=== PATIENT | male | born 1955 | race Caucasian/White ===

== ENCOUNTER 2018-08-17 18:02 | Inpatient (IN) ==
[2018-08-17] MEDS ORDERED: Tdap (Boostrix) Vaccine 0.5 ML SYRINGE IM ONE (18:10)
[2018-08-17] MEDS ORDERED: Ondansetron 4 MG/2 ML VIAL IVP ONE (18:11)
--- NOTE | 2018-08-17 18:12 | Emergency Department Note ---
Disposition Clinical Impression: Ventricular arrhythmia Syncope Qualifiers: Syncope type: unspecified Qualified Code(s): R55 - Syncope and collapse Scalp laceration Qualifiers: Encounter type: initial encounter Qualified Code(s): S01.01XA - Laceration without foreign body of scalp, initial encounter Disposition: Admitted As Inpatient Condition: Undetermined Time of Disposition: 19:36 Syncope HPI - General Chief Complaint: ED Syncope Stated Complaint: Fall Time Seen by Provider: 08/17/18 18:07 Source: patient, EMS Mode of arrival: EMS Limitations: no limitations Nursing Notes Reviewed: Yes Vital Signs Reviewed: Yes - History of Present Illness HPI Narrative: 63-year-old male with history of hypertension, cardiac arrhythmia of unknown origin, arrives to the emergency department after a syncopal episode. The patient fell and struck his head mid-conversation with friend. The patient was down for an unknown period of time. EMS was called at that time and arrived to see the patient. The patient had no recollection of the incident. No seizure- like activity was reported by friend. The patient was being transported from EMS and we will hold up to the monitor in the EMS vehicle, the patient underwent roughly 10 seconds of ventricular fibrillation. The patient became unresponsive during that period of time and does not recollect the incident. The patient denies any other complaints at this time. He was noting to have some nausea on waking up after this episode of ventricular fibrillation. The patient does have a small laceration to his left posterior occiput. Patient denies any chest pain, difficulty breathing, abdominal pain, melena, hematochezia, unilateral leg swelling, paresthesias at this time. He is alert and oriented. He is appropriate for evaluation. He denies any other complaints. - Related Data Home Medications Medication Instructions Recorded Confirmed Aspirin Enteric Coated [Aspirin EC] 81 mg PO DAILY 08/17/18 08/17/18 Clobetasol Propionate 0.05% 1 appl TP BID 08/17/18 08/17/18 [Temovate] Ibuprofen [Advil] 200 mg PO DAILY PRN 08/17/18 08/17/18 Multivitamin [One Daily Essential] 1 tab PO DAILY 08/17/18 08/17/18 Allergies Allergy/AdvReac Type Severity Reaction Status Date / Time No Known Drug Allergies Allergy See Verified 08/17/18 18:12 Comments All systems ED: reviewed and negative except as stated. Constitutional: Denies: fever, chills, weakness ENT ED: Denies: dysphagia Cardiovascular: Reports: syncope. Denies: chest pain Respiratory: Denies: dyspnea Gastrointestinal: Reports: nausea. Denies: abdominal pain, vomiting, diarrhea, hematemesis, melena Genitourinary: Denies: urgency, dysuria Musculoskeletal: Denies: back pain Integumentary: Denies: rash Neurological: Denies: headache, numbness, paresthesias, confusion Past Medical History - Past Medical History Attestation: Yes The following information was validated with the patient. Source: patient, old records reviewed Medical history: Reports: hypertension Surgical history: Reports: non-contributory - Social History Smoking Status: Never smoker Smokeless Tobacco Status: No Alcohol use: Reports: none Drug use: Reports: marijuana Physical Exam - General Limitations: no limitations General appearance: alert, in no apparent distress - Head Head exam: other (Small laceration to posterior occiput) - Eye Eye exam: Present: normal appearance, PERRL, EOMI - ENT ENT exam: normal exam, normal oropharynx, mucous membranes moist - Neck Neck exam: Present: normal inspection, full ROM, trachea midline - Chest Chest inspection: Present: normal inspection, symmetric chest wall rise - Respiratory Respiratory exam: Present: normal lung sounds bilaterally - Cardiovascular Cardiovascular exam: Present: regular rate, normal rhythm, normal heart sounds - Abdominal Exam Abdominal exam: Present: soft, Non-Tender. Absent: tenderness, distention, guarding, rebound, rigidity - Extremities Exam Extremities exam: Present: normal inspection, full ROM. Absent: tenderness, pedal edema - Neurological Exam Neurological exam: Present: alert, oriented X3, CN II-XII intact - Expanded Neurological Exam Patient oriented to: Present: person, place, time Speech: Present: fluid speech Cranial nerves: EOM function (II, III, IV, ): Normal, facial sensation (V): Normal, facial palsy (VII): Normal Motor strength - LUE: 5/5 Motor strength - RUE: 5/5 Motor strength - LLE: 5/5 Motor strength - RLE: 5/5 Sensory exam upper extremity: light touch: Normal Sensory exam lower extremity: light touch: Normal Coma Scale Eye Opening: Spontaneous Coma Scale Motor Response: Obeys Commands Coma Scale Verbal Response: Oriented Coma Scale Total: 15 - Skin Skin exam: Present: warm, dry, normal color, other (1.5 cm left posterior laceration. Small abrasion to left lateral elbow.) Course Vital Signs Temperature 97.8 F 08/17/18 18:03 Pulse Rate 67 08/17/18 18:03 Respiratory Rate 18 08/17/18 18:03 Blood Pressure 123/84 08/17/18 18:03 O2 Sat by Pulse Oximetry 99 08/17/18 18:03 Temperature 98.0 F 08/17/18 21:48 Pulse Rate 74 08/17/18 21:48 Respiratory Rate 16 08/17/18 21:48 Blood Pressure 129/86 08/17/18 21:48 O2 Sat by Pulse Oximetry 98 08/17/18 21:48 Oxygen Delivery Oxygen Delivery Room Air Procedures - Laceration Laceration 1 Site: scalp Side (If applicable): left Size (cm): 1.5 Description: linear Depth: simple, single layer Local Anesthetic: lidocaine 1%, with epi Amount of Anesthesia Used (mL): 2 Pre-repair: wound explored Skin layer closed with: vicryl Size: 4-0 Number of sutures/britney: 3 Technique: simple, interrupted Syncope - MDM Narrative Medical decision making narrative: Patient's workup in the emergency department given streets no acute process intracranial, cervical spine shows no acute fractures but does demonstrate findings concerning for multiple myeloma. Patient's lab work is otherwise unremarkable with exception of some mild hypokalemia. The patient will be admitted to the hospital given the V. fib that was witnessed by EMS and the patient's syncopal episode. Patient given strict no other acute process. Patient's wound was sutured in the trauma bay. The patient will be admitted to the hospitalist for further care and workup. The patient made aware and agrees to plan. No further questions or concerns noted at this time. Patient accepted by Dr. Kwok. - Lab Data Lab results reviewed: Yes I reviewed the patient's lab results. Result diagrams: 08/17/18 18:13 08/17/18 18:13 Lab Results 08/17/18 08/17/18 Range/Units 18:13 18:13 WBC 7.2 (4.3-11.1) K/mcL RBC 4.65 (4.19-5.50) M/mcL Hgb 14.3 (12.9-16.9) g/dL Hct 42.7 (37.5-50.1) % MCV 91.8 (83.0-100.0) fL MCH 30.8 (28.0-33.3) pg MCHC 33.5 (31.6-35.5) g/dL RDW 13.3 (11.5-14.5) % Plt Count 293 (140-400) K/mcL MPV 9.0 L (9.4-12.4) fL Immature Gran % 0.4 (0-4) % Seg Neutrophils % 75.4 % Lymphocytes % 18.1 % Monocytes % 4.9 % Eosinophils % 0.6 % Basophils % 0.6 % Neutrophils # 5.4 (1.6-8.9) K/mcL Lymphocytes # 1.3 (0.6-4.6) K/mcL Monocytes # 0.4 (0.0-1.3) K/mcL Eosinophils # 0.0 (0.0-0.6) K/mcL Basophils # 0.0 (0.0-0.2) K/mcL Sodium 139 (136-145) mEq/L Potassium 3.4 L (3.5-5.1) mEq/L Chloride 109 H (98-107) mEq/L Carbon Dioxide 21 L (23-29) mEq/L BUN 15 (8-23) mg/dL Creatinine 0.90 (0.70-1.30) mg/dL Est GFR ( Amer) > 60 (> 60) Est GFR (Non-Af Amer) > 60 (> 60) BUN/Creatinine Ratio 17 (6-26) Glucose 168 H (70-105) mg/dL Calculated Osmolality 293 (280-300) Calcium 9.1 (8.6-10.3) mg/dL Magnesium 2.0 (1.6-2.6) mg/dL Total Bilirubin 0.7 (0.3-1.0) mg/dL AST 16 (13-39) Units/L ALT 13 (7-52) Units/L Alkaline Phosphatase 62 (34-104) Units/L Troponin I < 0.03 (< 0.04) ng/mL Serum Total Protein 6.8 (6.4-8.9) g/dL Albumin 4.4 (3.5-5.7) g/dL Globulin 2.4 (2.4-3.5) g/dL Albumin/Globulin Ratio 1.8 (1.1-2.2) - Radiology Data Radiology results reviewed: Yes I reviewed the patient's radiology results. Head CT 08/17/18 18:07 IMPRESSION: No acute intracranial abnormality. Left parietal scalp hematoma. D/ / Annie Vicente MD / Annie Vicente MD Interpreting Provider: Annie Vicente MD Cervical Spine CT 08/17/18 18:08 IMPRESSION: No acute abnormality of the cervical spine. Small numerous lytic regions throughout the cervical spine raise the suspicion for multiple myeloma. D/ / 08/17/2018 18:39:14 Annie Vicente MD / aria Interpreting Provider: Annie Vicente MD - EKG Data EKG attestation: Yes I reviewed and interpreted this EKG. EKG results narrative: Heart rate 63 beats for minute. Normal sinus rhythm. No ST elevation or ST depression noted. Inverted T waves noted in V1. Attestation Statement - Attestation Attestation: I examined this patient and my medical decision-making was reviewed with the Resident Physician. I agree with the documented findings, disposition and treatment plan as described except to the extent set forth below. Findings consistent with fall. There is possible arrhythmic genic etiologies which caused his syncopal event and fall. The paramedics reported there was possible arrhythmia with syncope on the way to the hospital. There is a small laceration the head. CT scan of the head and cervical spine shows no acute findings. Ultimately laboratory analyses were without significant derangement. The patient will need to be admitted for possible EP study and cardiac consultation to rule out arrhythmic genic causes of syncope.
[2018-08-17 18:22] LABS: Basophils % 0.6 %; Eosinophils % 0.6 %; Hematocrit 42.7 % (37.5-50.1); Hemoglobin 14.3 g/dL (12.9-16.9); Immature Granulocytes % 0.4 % (0-4); Lymphocytes # 1.3 K/mcL (0.6-4.6); Lymphocytes % 18.1 %; Mean Corpuscular HGB Conc 33.5 g/dL (31.6-35.5); Mean Corpuscular Hemoglobin 30.8 pg (28.0-33.3); Mean Corpuscular Volume 91.8 fL (83.0-100.0); Monocytes # 0.4 K/mcL (0.0-1.3); Monocytes % 4.9 %; Neutrophils # 5.4 K/mcL (1.6-8.9); Platelet Count 293 K/mcL (140-400); Red Blood Count 4.65 M/mcL (4.19-5.50); Red Cell Distribution Width 13.3 % (11.5-14.5); Segmented Neutrophils % 75.4 %
[2018-08-17 18:44] LABS: Alanine Aminotransferase 13 Units/L (7-52); Albumin 4.4 g/dL (3.5-5.7); Albumin/Globulin Ratio 1.8 (1.1-2.2); Alkaline Phosphatase 62 Units/L (34-104); Aspartate Amino Transferase 16 Units/L (13-39); BUN/Creatinine Ratio 17 (6-26); Bilirubin,Total 0.7 mg/dL (0.3-1.0); Blood Urea Nitrogen 15 mg/dL (8-23); Calcium 9.1 mg/dL (8.6-10.3); Carbon Dioxide 21 mEq/L (23-29); Chloride 109 mEq/L (98-107); Globulin 2.4 g/dL (2.4-3.5); Glucose 168 mg/dL (70-105); Osmolality,Calculated 293 (280-300); Potassium 3.4 mEq/L (3.5-5.1); Sodium 139 mEq/L (136-145); Total Protein 6.8 g/dL (6.4-8.9); Troponin I < 0.03 ng/mL (< 0.04); eGFR For Non-African Americans > 60 (> 60)
[2018-08-17] MEDS ORDERED: Lidocaine/EPI 1:100k 1% 30 ML VIAL INFILT ONE (18:49)
[2018-08-17] MEDS ORDERED: Lidocaine/EPI 1:200k 1% PF 10 ML VIAL ONE (18:53)
[2018-08-17] MEDS ORDERED: Naloxone 0.4 MG/ML INJ IVP PRN (22:09)
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
[2018-08-17] MEDS: *HR* Heparin 5,000 UNIT/ML VIAL SQ SCH (23:17)
[2018-08-18 06:30] LABS: Basophils % 0.6 %; Eosinophils % 0.4 %; Hematocrit 40.7 % (37.5-50.1); Hemoglobin 13.5 g/dL (12.9-16.9); Immature Granulocytes % 0.3 % (0-4); Lymphocytes # 1.3 K/mcL (0.6-4.6); Lymphocytes % 17.9 %; Mean Corpuscular HGB Conc 33.2 g/dL (31.6-35.5); Mean Corpuscular Hemoglobin 30.6 pg (28.0-33.3); Mean Corpuscular Volume 92.3 fL (83.0-100.0); Mean Platelet Volume 9.5 fL (9.4-12.4); Monocytes # 0.5 K/mcL (0.0-1.3); Monocytes % 7.2 %; Neutrophils # 5.4 K/mcL (1.6-8.9); Platelet Count 291 K/mcL (140-400); Red Blood Count 4.41 M/mcL (4.19-5.50); Red Cell Distribution Width 13.3 % (11.5-14.5); Segmented Neutrophils % 73.6 %
[2018-08-18 06:55] LABS: Alanine Aminotransferase 12 Units/L (7-52); Alkaline Phosphatase 60 Units/L (34-104); Aspartate Amino Transferase 14 Units/L (13-39); BUN/Creatinine Ratio 16 (6-26); Bilirubin,Total 0.8 mg/dL (0.3-1.0); Blood Urea Nitrogen 15 mg/dL (8-23); Calcium 9.1 mg/dL (8.6-10.3); Carbon Dioxide 23 mEq/L (23-29); Chloride 108 mEq/L (98-107); Glucose 90 mg/dL (70-105); Osmolality,Calculated 288 (280-300); Potassium 3.8 mEq/L (3.5-5.1); Sodium 139 mEq/L (136-145); eGFR For Non-African Americans > 60 (> 60)
[2018-08-18] MEDS: *HR* Heparin 5,000 UNIT/ML VIAL SQ SCH ×3 (10:20→23:48)
[2018-08-18] MEDS: Multivit/Ca/Min/Fe/FA 1 TAB TABLET PO SCH (10:20)
[2018-08-18] MEDS: Aspirin Enteric Coated 81 MG Tablet PO SCH (10:20)
[2018-08-18] MEDS ORDERED: Acetaminophen 325 MG TABLET PO PRN (10:53)
--- NOTE | 2018-08-18 11:17 | Internal Med Progress Note ---
Hospitalist Progress Note - Encounter Date of Encounter: 08/18/18 Time of Encounter: 10:00 - Subjective Interval History: Patient complains of headache today he was admitted for syncopal episodes and a laceration on the left parietal area that required 3 sutures he has went for a echo today and the results of that is pending. He denies syncopal episodes, dizziness, blurred vision, nausea or vomiting. He was in hopes that he will get to go home today after his echo results and he is consulted by cardiology. He does state that he has a history of A. fib takes no anticoagulation other than a self-administered 81 mg ASA daily. He does state in his history that he has once before had a syncopal episode and that was back in the . 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 He reports that he was hospitalized at that time and [place] and all testing was inconclusive. - Exam Vitals: Temp Pulse Resp BP Pulse Ox 98.4 F 81 20 117/76 96 08/18/18 07:18 08/18/18 07:18 08/18/18 07:18 08/18/18 07:18 08/18/18 07:18 Exam: See above - Assessment and Plan (1) Syncope Current Visit: Yes Status: Acute Assessment and Plan: Echo is pending That completed this morning we will follow up with cardiology consult. (2) Ventricular arrhythmia Current Visit: Yes Status: Acute Assessment and Plan: Cardiology consult is pending patient has history of A. fib without any formal anticoagulation states that he self administers an 81 mg of aspirin daily. EKG did show a sinus rhythm yesterday in the emergency room with a ventral rate of 63. A second EKG was obtained and did show some ectopic atrial tachycardia with ventricular rate of 125 and did have some unifocal abnormal P axis with consideration of dextrocardia. 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 Ramirez and he is well maintained and controlled with his disease process and treatment program. This is chronic in nature and we will just continue to monitor. Lymphocytes are normal and stable at 1.32, white blood cell is stable at 7.3 and he does not have any hematological evidence of anemia. - Summary of Assessment and Plan Summary of Assessment and Plan: Mr. Smith is a 63-year-old male who was admitted through the emergency room for syncopal episode with loss of consciousness unknown how long. He did strike his head on concrete and sustained a laceration on the left parietal area which required 3 sutures. Reports that he was speaking with a [employer] sweep regarding cleaning his family when he felt faint and he backed up against his own vehicle in the driveway to help stabilize his symptoms of dizziness. Ports that he did walk around the persons a.m. and when he did he evidently passed out hitting his head on concrete. There is no record of how long he was unconscious states that he woke to the [employer] sweep telling him that he had placed a paper towels behind his head for the bleeding and that he had called 911. Reports that he was alert and oriented on the right in and to the emergency room and on exactly the records that he was being taken down to come to the hospital. Today he complains of headache and Tylenol will be given. He has history of A. fib with self medicated 81 mg of aspirin daily. Echo was completed today and is pending as well as cardiology consult. Patient is in hopes that after tests have resulted and he is seen by consult that he may be discharged today. Vital signs remained stable and he is in stable condition - Time Spent with Patient Total time spent is greater than 50% in coordination of care (as documented) at patient's floor/unit and/or counseling patient: less than 15 minutes Plan of Care Discussed with: patient Internal Medicine: Result - Labs CBC & Chem 7: 08/18/18 04:06 08/18/18 04:06 Consult Discharge Plan - Plan Referrals: Aren Fernandez DO [Primary Care Provider] - 08/25/18 10:45 am () (1) Syncope Qualifiers: Syncope type: unspecified Qualified Code(s): R55 - Syncope and collapse (4) Cutaneous T-cell lymphoma Qualifiers: Lymphoma site: unspecified region Qualified Code(s): C84.A0 - Cutaneous T- cell lymphoma, unspecified, unspecified site
--- NOTE | 2018-08-18 11:59 | Cardiology Consult Note ---
<Angely Bills - Last Filed: 08/18/18 12:35> Date of Encounter: 08/18/18 Time of Encounter: 10:45 Assessment and Plan (1) Syncope Current Visit: Yes Status: Acute Patient presented after witnessed syncopal event at home, resulting in scapular laceration. Of note, reports of possible ventricular arrhythmia seen on squad monitor-- patient denies events en route to [facility], no strips available for review, and patient reportedly spontaneously converted to NSR-- ?artifact. LOC of consciousness felt to be minutes, patient reports felt lucid upon awakening. Presyncopal symptoms: dizziness. Reports x2 similar episodes in the past--once in 1990 (inconclusive test results ) and again ~10 years ago. TTE showed preserved LVEF with normal wall motion. No significant valvular dysfunction. Telemetry reviewed, 3.3 second sinus arrest at 11:07 AM today--pt was dizzy and had to lay flat during episode. Has not been on AV sierra blocking agents in the past. Given multiple syncopal episodes, and sinus arrest today with similar symptoms, recommend EP consult for PPM evaluation. Qualifiers: Syncope type: unspecified Qualified Code(s): R55 - Syncope and collapse Discussion w patient/family: The assessment and plan as outlined above was discussed with the patient and/or family members who expressed understanding and agreement. All questions were answered. Thank you for involving us in the care of your patient. Please call with any questions. The patient will be discussed and reviewed with Dr. Carrington; changes to be made accordingly. History of Present Illness Consult date: 08/18/18 Requesting physician: Rizwana Campos Consult reason: Syncope Chief complaint: syncope History of present illness: Mr. Smith is a 63 year old male with no significant PMHx who presented to the ED after a witnessed syncopal event yesterday afternoon. He reports he was talking (standing) to a application security developer when he suddenly felt dizzy, he leaned up against his vehicle and symptoms improved. He notes he was discussing a stressful event when this occurred. A few minutes later he felt dizzy again and walked towards his house when he suddenly lost consciousness. When he awoke, EMS was en route and the application security developer was holding pressure on his head wound. He recalls the entire squad ride and denies recurrent syncopal events en routine to [facility]. Per ED notes, concern for arrhythmia (vfib)--patient reportedly spontaneously converted to NSR without intervention and no strips are available for review. He reports x2 similar episodes in the past--once in 1990 and the second around 10 years ago. He was told testing was "inconclusive." He also has been told he has an irregular heart rhythm. Home medications including asa 81 mg daily, 200 mg Ibuprofen daily, and multivitamin. Past Med Surg Social Fam HX - Past Medical History Attestation: Yes The following information was validated with the patient. Source: patient Additional medical history: arrhythmia Psychiatric history: no psych history - Past Surgical History Surgical History: non-contributory - Social History Smoking Status: Never smoker Smokeless Tobacco Status: No Alcohol use: none Drug use: marijuana - Family History Mother Living Status: Age at : 86 Cause of : CHF Hx Family Endocrine Disorder: Yes (DMII) Father Living Status: Age at : 58 Cause of : car accident Brother Living Status: Still Living Hx Family Cardiac Disorders: Yes (brothers with CAD/stents x2) Hx Family Cancer: Yes Hx Family Endocrine Disorder: Yes Hx Family Psychosocial Disorders: Yes (drug abuse) Medications and Allergies Aspirin Enteric Coated [Aspirin EC] 81 mg PO DAILY 08/17/18 [History] Clobetasol Propionate 0.05% [Temovate] 1 appl TP BID 08/17/18 [History] Ibuprofen [Advil] 200 mg PO DAILY PRN 08/17/18 [History] Multivitamin [One Daily Essential] 1 tab PO DAILY 08/17/18 [History] 3 Allergy/AdvReac Type Severity Reaction Status Date / Time No Known Drug Allergies Allergy See Verified 08/17/18 18:12 Comments All Systems Review: The remainder of the systems were reviewed and are negative - Cardiovascular Cardiovascular: as per HPI Physical Examination Vital Signs, Last 4 Hours Temp Pulse Resp BP Pulse Ox 08/18/18 11:19 98.1 F 75 20 116/70 94 General: Conversant HEENT: Atraumatic, Normocephaly, Other (scalp laceration left side of head) Cardiac: Reg Rate and Rhythm, Normal S1 and S2 Lungs: Normal Breath Sounds Neuro: Alert and responsive Abdomen: Soft Skin: No rashes noted on visualized skin Musculoskeletal: No Chest Wall Tenderness Extremities: No Edema, Normal Pulses Results 08/18/18 04:06 08/18/18 04:[address] 08/17/18 18:07 IMPRESSION: No acute intracranial abnormality. Left parietal scalp hematoma. D/ / Annie Vicente MD / Annie Vicente MD Interpreting Provider: Annie Vicente MD Cervical Spine CT 08/17/18 18:08 IMPRESSION: No acute abnormality of the cervical spine. Small numerous lytic regions throughout the cervical spine raise the suspicion for multiple myeloma. D/ / 08/17/2018 18:39:14 Annie Vicente MD / aria Interpreting Provider: Annie Vicente MD Bone Osseous Survey 08/18/18 00:00 IMPRESSION: No lytic or blastic lesions are identified. The small lytic foci noted to the cervical spine on CT exam 08/17/2018 are not well demonstrated on these x-rays. D/ / 08/18/2018 09:43:26 Avel Romero MD / nikko Interpreting Provider: Avel Romero MD Echocardiogram 08/18/18 21:47 Impressions: LVEF 50-55%. Normal LV chamber size, wall thickness and function. Mild left ventricular diastolic dysfunction. Normal right ventricular structure and function. No significant valvular dysfunction. Left Ventricular Wall Motion: Rest Echo Findings All wall segments showed normal motion. Findings: Study Quality * Technically adequate exam. ECG Findings * Normal sinus rhythm. Left Ventricle * LVEF 50-55%. * Normal LV chamber size, wall thickness and function. * Mild left ventricular diastolic dysfunction. Right Ventricle * Normal right ventricular structure and function. Left Atrium * Normal left atrial size. Right Atrium * Normal right atrial size. Interatrial Septum * No evidence of PFO by color Doppler. Aortic Valve * Trileaflet aortic valve. * Normal aortic valve structure. * No aortic regurgitation. * No aortic stenosis. Mitral Valve * Normal mitral valve structure. * No mitral regurgitation. * No mitral stenosis. Tricuspid Valve * Normal tricuspid valve structure. * No tricuspid regurgitation. * No tricuspid stenosis. * Unable to estimate RVSP due to lack of TR jet. Pulmonic Valve * Normal pulmonic valve structure. * No pulmonic regurgitation. Aorta * Normally sized aortic root. Pericardium * The pericardium appears normal. IVC * Normal IVC dimensions and inspiratory collapse. Pulmonary Artery * Normal visualized portions of the main pulmonary artery. - Imaging and Cardiology Echo: report reviewed Other Results: Telemetry review: avg HR=74 SR. Sinus arrest; pause 3.3 second - EKG Interpretation EKG results cardiology: personally reviewed Consult Discharge Plan - Plan Referrals: Aren Fernandez DO [Primary Care Provider] - 08/25/18 10:45 am () <Mojgan Carrington - Last Filed: 08/18/18 13:07> Date of Encounter: 08/18/18 - Attending Attestation Patient was seen and evaluated independently by me. Findings, assessment and plan were discussed at length with patient, questions answered. Agree with nurse practitioner's documentation. Addition as follows, 63 yoCM ho "irregular heart beats" and two syncopal episodes (one with significant trauma) p/w the 3d episode of syncope of similar features: dizziness , LOC several minutes w/o TC activity with external head trauma, no confusion upon regaining consciousness. ECG non-revealing, TTE preserved EF w/o structure abn. After admission, one episode of dizziness 11am corresponds to sub-30-sec PAfib with slow conduction with VR 20s and one 3.5 sec conversion pause with slow sinus node recovery. Vital stable, no JVD, CTA, RRR, no LE edema. A: Recurrent traumatic syncope, PAF with symptomatic slow AV conduction, conversion pause, SSS P: discussed with pt re PPM placement consult EP Dr Herve Ferguson for further w/u and arrangement Mojgan Carrington MD, PhD Assessment and Plan Discussion w patient/family: The assessment and plan as outlined above was discussed with the patient and/or family members who expressed understanding and agreement. All questions were answered. Thank you for involving us in the care of your patient. Please call with any questions. History of Present Illness History of present illness: Mr. Smith is a 63 year old male All Systems Review: The remainder of the systems were reviewed and are negative Physical Examination Vital Signs, Last 4 Hours Temp Pulse Resp BP Pulse Ox 08/18/18 11:19 98.1 F 75 20 116/70 94 Results 08/18/18 04:06 08/18/18 04:06
[2018-08-18] MEDS ORDERED: Ondansetron 4 MG/2 ML VIAL IVP PRN (12:58)
[2018-08-18] MEDS ORDERED: CeFAZolin Syr 2,000MG/20 ML 2,000 MG/20 ML SYRINGE IVPB ONE (13:00)
--- NOTE | 2018-08-18 13:10 | Event Note ---
Date of Encounter: 08/18/18 Time of Encounter: 13:05 - Cardiology Event Note EP consulted for sinus pauses, syncope. ECGs and telemetry reviewed with Dr.John Ferguson, recommend pacemaker. Discussed with patient regarding risks versus benefits of pacemaker. Patient states understanding and agreeable to proceed with pacemaker. OF note, patient did have breakfast this morning, discussed with , ok to proceed with pacemaker. ALso, patient nauseated in room and vomited x1. Zofran PRN ordered. During nausea/vomiting, telemetry reviewed and HR SR 60s. Further recommendations pending pacemaker.
[2018-08-18 14:14] LABS: INR 1.1; Prothrombin Time 12.9 Seconds (9.4-12.1)
--- NOTE | 2018-08-18 14:18 | Pre-Sedation Evaluation ---
Pre-sedation evaluation - Pre-sedation checklist Date of procedure: 08/18/18 Procedure: Pacemaker placement. Recent Vitals: Last Vital Signs Temp 98.1 F 08/18/18 11:19 Pulse 75 08/18/18 11:19 Resp 20 08/18/18 11:19 BP 116/70 08/18/18 11:19 Pulse Ox 94 08/18/18 11:19 H&P (including ROS) documented in medical record: Yes Previous reaction to sedatives/anesthetics: No Dietary Status: No solid food in preceding 4 hrs and no liquid in preceding 2 hrs Airway Assessment: Patient can open mouth completely, TMJ function normal, Micrognathia (under-bite, receding chin) absent Dentition: No loose teeth or bridges Possible difficult airway: No ASA Classification *see protocol: CLASS II-Mild systemic disease Plan of Care: Pt appropriate candidate for procedure/moderate/conscious sedation , Risks/benefits of procedure/sedation discussed w/ patient/family Cardiac Registry (Cardio Only) - Functional Capacity - Clincal Frailty Scale
[2018-08-18] MEDS ORDERED: 0.9 % Sodium Chloride 500 ML ONE (14:26)
[2018-08-18] MEDS ORDERED: Water for inj. (sterile) 10 ML IV ONE (14:26)
[2018-08-18] MEDS ORDERED: 0.9 % Sodium Chloride Mini Bag 100 ML ONE (14:26)
[2018-08-18] MEDS ORDERED: 0.9 % Sodium Chloride 1,000 ML ONE (14:27)
[2018-08-18] MEDS ORDERED: *HR* Midazolam HCl 2 MG/2 ML VIAL ONE ×2 (14:49→14:55)
[2018-08-18] MEDS ORDERED: *HR* FentaNYL (PF) 100 MCG/2 ML VIAL ONE (14:49)
[2018-08-18] MEDS ORDERED: *HR* OxyCODONE Immed Rel 5 MG TABLET PO PRN (15:38)
[2018-08-19 08:09] VITALS: BP 137/81
[2018-08-19] MEDS: Multivit/Ca/Min/Fe/FA 1 TAB TABLET PO SCH (08:50)
[2018-08-19] MEDS: Aspirin Enteric Coated 81 MG Tablet PO SCH (08:50)
[2018-08-19] MEDS: *HR* Heparin 5,000 UNIT/ML VIAL SQ SCH (08:50)
--- NOTE | 2018-08-19 10:20 | Discharge Summary ---
- NOTES TO OUTPATIENT PROVIDER Notes to Outpatient Provider: f/u with cardiology within a week. f/u with PCP within a week. 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 Smith is a 63 year old male presented after witnessed syncopal event at home, resulting in scapular laceration. He lost consciousness felt to be minutes , patient reports felt lucid upon awakening. Reports x2 similar episodes in the past--once in 1990 (inconclusive test results ) and again ~10 years ago. It ws reported that pt had a possible ventricular arrhythmia on squad monitor-- patient denies events en route to [facility], no strips available for review, and patient reportedly spontaneously converted to NSR. It is likely artifact. Further workup includes TTE which showed preserved LVEF with normal wall motion. No significant valvular dysfunction. While in the hospital, Telemetry reviewed, 3.3 second sinus arrest on 08/17y--pt was dizzy and had to lay flat during episode. He has not been on AV sierra blocking agents in the past. EP was consulted and pace-maker was recommended. Pt received dual chamber PPM on . CXR demonstrated stable chest without pneumothorax. Device check demonstrated normal functioning PPM. Will be discharged home today, he was instructed to follow up with cardiology and PCP as scheduled. Discharge discussed with: patient, family Time spent discussing smoking cessation with patient: more than 10 minutes - Time Spent with Patient Total time spent providing and/or coordinating discharge services: Less than 30 minutes - Discharge Medications Prescriptions: Cephalexin [Keflex] 500 mg PO BID #10 capsule Home Medications: Aspirin Enteric Coated [Aspirin EC] 81 mg PO DAILY 08/17/18 [History] Clobetasol Propionate 0.05% [Temovate] 1 appl TP BID 08/17/18 [History] Ibuprofen [Advil] 200 mg PO DAILY PRN 08/17/18 [History] Multivitamin [One Daily Essential] 1 tab PO DAILY 08/17/18 [History] Acetaminophen [Tylenol] 650 mg PO Q6HR PRN tablet 08/19/18 [Rx] Cephalexin [Keflex] 500 mg PO BID #10 capsule 08/19/18 [Rx] Allergies/Adverse Reactions: 3 Allergy/AdvReac Type Severity Reaction Status Date / Time No Known Drug Allergies Allergy See Verified 08/17/18 18:12 Comments Date of admission: 08/18/18 04:58 Primary care physician: Juan Carlos Fernandez DO Consults: 08/18/18 11:59 Consult to Electrophysiology (EP) [CONS] Routine Consulting Provider: Electrophysiology Juanis Reason for Consult: Syncope, Sinus arrest Call Completed: Yes Anticipated date of discharge: 08/19/18 - Constitutional Vitals: Temp Pulse Resp BP Pulse Ox 98.5 F 71 16 137/81 95 08/19/18 08:08 08/19/18 08:08 08/19/18 08:08 08/19/18 08:08 08/19/18 08:08 General appearance: Present: A&O X 3, pleasant, no acute distress, answers questions appropriately Exam: PHYSICAL EXAMINATION: GENERAL APPEARANCE: The patient is alert, oriented and in no acute distress. HEENT: Head is normocephalic. The sinuses are nontender. Pupils are equal and reactive. The nares are patent. Oropharynx clear without lesions. NECK: Supple without lymphadenopathy. HEART: Regular rate and rhythm. LUNGS: No crackles or wheezes are heard. ABDOMEN: Soft, nontender, nondistended with good bowel sounds heard. Inguinal area is normal. EXTREMITIES: Without cyanosis, clubbing or edema. NEUROLOGICAL: Gross nonfocal. SKIN: Warm and dry without any rash. - Patient Status Disposition: Home, Self-Care Condition: Good Functional capacity at discharge: independent ambulation Overall status at discharge: patient is back to baseline - Discharge Instructions Instructions: Cephalexin (By mouth), Pacemaker (DC) Follow Up With: Aren Fernandez DO [Primary Care Provider] - 08/25/18 10:45 am () Herve Ferguson MD [Partnered Physician] - (The office will call to schedule follow up appointment) Additional Instructions: ACTIVITY: Moderate activity for the next 7 days. No lifting more than 5 pounds ( gallon of milk) for 4-6 weeks. Avoid lifting your arm on the same side as the device for 4 weeks. BATHING /SHOWERING: Do not remove the large bandage over the site for 2 days. Do not allow the device to get wet for 7-10 days. You may bathe/shower, but do not use soap and water on the site. When bathing, keep the site dry by covering with Saran wrap or a towel. WOUND CARE: The white steri-strips will start to peel away and come off after 14 days, or your doctor will remove them after [address] anything into or on top of the incision. Do not use cotton swabs. Do not use any antibiotic ointment or Vitamin E on the site. REMINDERS: You may use electrical devices, such as, microwaves, hair dryers, electric razors, electric blankets, etc. as long as they are in good condition and kept 6 -8 inches away from the device. It is recommended to use cell phones on the opposite side of your device. Notify security personnel at the airport that you have a device before you go through airport security screening. When at places with security monitors, such as a grocery store, do not linger near these monitors. It is fine to walk past them in a normal manner. Refer to your owners manual for more specific directions. CARRY YOUR PACEMAKER/ICD CARD WITH YOU AT ALL TIMES Return to work as instructed per physician Resume driving as instructed per physician Keep all scheduled follow up appointments Resume medications as instructed Contact [facility] ( ) if: You develop excessive bleeding from insertion or wound site not controlled by applying pressure You develop a fever greater than 101 degrees Fahrenheit Your incision becomes reddened at or around the site Your incision develops yellowish or greenish drainage or development of white pimple-like bumps You experience excessive pain You develop swelling in your ankles You experience muscle switching You develop excessive hiccupping If you experience chest pain, shortness of breath, dizziness, or extreme tiredness, stop the activity and rest. Please notify [facility] office if you experience any of these symptoms and they are not relieved by rest please call 911! - Diet and Activity Activity: increase activity as tolerated Diet: advance to your usual diet
--- NOTE | 2018-08-19 10:35 | Cardiology Progress Note ---
Date of Encounter: 08/19/18 Time of Encounter: 09:30 Assessment and Plan (1) Syncope Current Visit: Yes Status: Acute Patient presented after witnessed syncopal event at home, resulting in scapular laceration. Of note, reports of possible ventricular arrhythmia seen on squad monitor-- patient denies events en route to [facility], no strips available for review, and patient reportedly spontaneously converted to NSR-- ?artifact. LOC of consciousness felt to be minutes, patient reports felt lucid upon awakening. Presyncopal symptoms: dizziness. Reports x2 similar episodes in the past--once in 1990 (inconclusive test results) and again ~10 years ago. TTE showed preserved LVEF with normal wall motion. No significant valvular dysfunction. Telemetry reviewed, 3.3 second sinus arrest at 11:07 AM today--pt was dizzy and had to lay flat during episode. Has not been on AV sierra blocking agents in the past. s/p dual chamber PPM yesterday. CXR yesterday evening and again this AM demonstrated stable chest without pneumothorax. Device check this AM demonstrated normal functioning PPM. Post PPM discharge instructions discussed including restrictions and care of site. Will coordinate outpatient follow-up with EP and device clinic. No further inpatient recommendations. Qualifiers: Syncope type: unspecified Qualified Code(s): R55 - Syncope and collapse Discussion w patient/family: The assessment and plan as outlined above was discussed with the patient and/or family members who expressed understanding and agreement. All questions were answered. Thank you for involving us in the care of your patient. Please call with any questions. The patient will be discussed and reviewed with Dr. Carrington; changes to be made accordingly. Subjective Principal diagnosis: Syncope, Sinus arrest Interval history: Seen and examined. No complaints upon exam this morning. PPM dressing removed, site clean/dry/intact. No dizziness reported. No syncope Objective Vital Signs, Last 4 Hours Temp Pulse Resp BP Pulse Ox 08/19/18 08:08 98.5 F 71 16 137/81 95 General: Conversant, No Apparent Distress HEENT: Atraumatic, Normocephaly, Mucus Membranes Moist Cardiac: Reg Rate and Rhythm, Normal S1 and S2 Lungs: Normal Breath Sounds Neuro: Alert and responsive Abdomen: Soft Skin: No rashes noted on visualized skin Musculoskeletal: No Chest Wall Tenderness Extremities: No Edema, Normal Pulses Other: Left upper chest wall PPM site: dressing removed, site clean and dry. No bleeding or hematoma. +2 radial pulses. Results 08/18/18 04:06 08/18/18 04:06 Lab Results 08/18/18 13:55 INR 1.1 - Imaging and Cardiology Echo: report reviewed - EKG Interpretation EKG results cardiology: personally reviewed Consult Discharge Plan - Plan Additional Instructions: ACTIVITY: Moderate activity for the next 7 days. No lifting more than 5 pounds ( gallon of milk) for 4-6 weeks. Avoid lifting your arm on the same side as the device for 4 weeks. BATHING /SHOWERING: Do not remove the large bandage over the site for 2 days. Do not allow the device to get wet for 7-10 days. You may bathe/shower, but do not use soap and water on the site. When bathing, keep the site dry by covering with Saran wrap or a towel. WOUND CARE: The white steri-strips will start to peel away and come off after 14 days, or your doctor will remove them after [address] anything into or on top of the incision. Do not use cotton swabs. Do not use any antibiotic ointment or Vitamin E on the site. REMINDERS: You may use electrical devices, such as, microwaves, hair dryers, electric razors, electric blankets, etc. as long as they are in good condition and kept 6 -8 inches away from the device. It is recommended to use cell phones on the opposite side of your device. Notify security personnel at the airport that you have a device before you go through airport security screening. When at places with security monitors, such as a grocery store, do not linger near these monitors. It is fine to walk past them in a normal manner. Refer to your owners manual for more specific directions. CARRY YOUR PACEMAKER/ICD CARD WITH YOU AT ALL TIMES Return to work as instructed per physician Resume driving as instructed per physician Keep all scheduled follow up appointments Resume medications as instructed Contact [facility] ( ) if: You develop excessive bleeding from insertion or wound site not controlled by applying pressure You develop a fever greater than 101 degrees Fahrenheit Your incision becomes reddened at or around the site Your incision develops yellowish or greenish drainage or development of white pimple-like bumps You experience excessive pain You develop swelling in your ankles You experience muscle switching You develop excessive hiccupping If you experience chest pain, shortness of breath, dizziness, or extreme tiredness, stop the activity and rest. Please notify [facility] office if you experience any of these symptoms and they are not relieved by rest please call 911! Referrals: Aren Fernandez DO [Primary Care Provider] - 08/25/18 10:45 am () Herve Ferguson MD [Partnered Physician] - Prescriptions: Cephalexin [Keflex] 500 mg PO BID #10 capsule
--- NOTE | 2018-08-21 14:29 | Electrocardiograph Report ---
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 Right bundle branch block. Left posterior fascicular block. Nonspecific STT changes. Electronically Signed On 08-21-2018 14:28:11 EDT by Mojgan Carrington
--- NOTE | 2018-08-21 14:33 | Electrocardiograph Report ---
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 Electronically Signed On 08-21-2018 14:57:31 EDT by Mojgan Carrington
--- NOTE | 2018-08-21 20:40 | Electrocardiograph Report ---
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
--- NOTE | 2018-08-21 21:00 | Electrocardiograph Report ---
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
== END 2018-08-19 12:41 | disposition home or self-care (01) | DRG 242 ==
LOC: 3BNU 18:02 → EMEROOARM 18:02 → 3BNU 21:17
PROVIDERS: ADMIT Internal Medicine; ATTEND Internal Medicine